=== PATIENT | male | born 1960 | race Caucasian/White ===

== ENCOUNTER 2016-10-08 02:26 | Emergency (ER) | payer MEDICARE ==
[2016-10-08] MEDS ORDERED: IOPAMIDOL 300 (61%) 100 ML VIAL IV ONE (02:27)
[2016-10-08] MEDS ORDERED: ACETAMINOPHEN 325 MG TABLET ONE (03:18)
[2016-10-08] MEDS ORDERED: LACTATED RINGERS 1,000 ML ONE (03:18)
[2016-10-08 03:33] LABS: ABSOLUTE NEUTROPHIL COUNT 3.4 K/mm3 (1.8-7.7); BASO # 0.1 K/mm3 (0.0-0.2); BASO % 1.3 % (0.2-1.0); EOS # 0.3 (0.0-0.5); EOS % 4.7 % (0.9-2.9); HEMATOCRIT 42.9 % (32.0-52.0); HEMOGLOBIN 14.1 gm/l (14.0-18.0); IMM NEUT% 0.4 % (0-1); LYMPH # 1.3 (1.0-4.8); MEAN CELL VOLUME 94.5 fl (80.0-94.0); MEAN CORPUSCULAR HEMOGLOBIN 31.1 pg (27.0-31.0); MEAN CORPUSCULAR HGB CONC 32.9 g/dl (33.0-37.0); MONO # 0.5 (0.0-0.8); MONO % 9.2 % (4-12); NEUT % 60.4 % (43-75); PLATELET COUNT 268 K/mm3 (130-400); RED CELL DISTRIBUTION WIDTH 13.1 % (11.5-14.5)
[2016-10-08 03:39] LABS: I-STAT CREATININE 0.9 mg/dL (0.6-1.3)
[2016-10-08] MEDS ORDERED: PROMETHAZINE HCL 25 MG/ML VIAL ONE (03:55)
[2016-10-08] MEDS ORDERED: MORPHINE SULFATE 4 MG/ML SYRINGE ONE (03:55)
[2016-10-08 04:45] LABS: SPECIFIC GRAVITY 1.015 (1.001-1.030); URINE BILIRUBIN NEGATIVE (NEGATIVE); URINE BLOOD NEGATIVE (NEGATIVE); URINE GLUCOSE (UA) NEGATIVE (NEGATIVE); URINE LEUKOCYTE ESTERASE NEGATIVE (NEGATIVE); URINE NITRITE NEGATIVE (NEGATIVE); URINE PROTEIN NEGATIVE (NEGATIVE); URINE UROBILINOGEN NORMAL (0-1 mg/dl)
[2016-10-08 04:51] LABS: URINE APPEARANCE SL CLOUDY; URINE COLOR YELLOW
--- NOTE | 2016-10-08 08:57 | CT ---
ABD/PELVIS W/ CON COMPARISON: CT abdomen and pelvis with contrast, 10/29/2014 HISTORY: 56-year-old male with left lower quadrant abdominal pain and a past history of diverticulitis. On the prior CT, 5 mm calculus distal left ureter, sigmoid colon diverticulosis, right renal cyst, fat filled umbilical hernia, and hardware fixation of right sacroiliac joint. Technique: No oral contrast. Intravenous injection 100 mL Isovue 300. Using a [employer] [address] scanner, images were obtained from the diaphragm to the floor the pelvis. An automated dose reduction technique was used to minimize patient radiation dose. Dose information: CTDIvol (mGy): 12.50 DLP(mGycm): 742.20 FINDINGS: Lung bases: No acute finding. Scar in the lingula. Dependent atelectasis in both lower lobe bases. Inferior mediastinum and heart: Normal. Liver: Normal. Gallbladder:Normal. Bile ducts: Normal. Pancreas: Normal. Spleen: Normal. Adrenal glands: Normal. Kidneys: No change. 10 mm cyst, middle third of the right kidney. Ureters: Normal Urinary bladder: Normal. Prostate gland and seminal vesicles: Normal. Blood vessels: Normal Lymph nodes: Normal Stomach: Normal Duodenum: Normal Small intestine: Normal Appendix: Normal Colon: Normal Abdominal wall and supporting musculature: Normal Bones: Normal IMPRESSION: 1. No acute finding. No diverticulitis. 2. No change in 10 mm cyst, right kidney. Preliminary report by [facility] radiologist Kady Louis MD, 10/08/2016 at 04:26
== END 2016-10-08 04:58 | disposition home or self-care (01) ==
LOC: ED 02:26
DX: R10.9 Unspecified abdominal pain (principal)
CPT/HCPCS: 85025; 80047; 81003; 74177; 96375; 99283; 96374; 96361; 99284; J2270; J2550; A9270; J7120; Q9967